=== PATIENT | male | born 1970 | race Caucasian/White ===

== ENCOUNTER 2017-03-18 20:33 | Emergency (ER) | payer OTHER ==
--- NOTE | 2017-03-18 20:59 | EDPHY ---
H & P Time Seen by Provider: 03/18/17 20:50 HPI/ROS: CHIEF COMPLAINT: Laceration left hand HISTORY OF PRESENT ILLNESS: 46-year-old [id number] male with out-of- date tetanus sustained accidental laceration to his right hand thenar eminence when he was using a knife to separate frozen hamburger patties and the knife went into his hand. No paresthesia. Occurred shortly prior to arrival PHYSICAL EXAM (Prior to examination, patient consented to physical exam, hands were washed and my usual and customary physical exam procedures followed) 1) GENERAL: Well-developed, well-nourished, alert and oriented. Appears to be in no acute distress. 2) HEAD: Normocephalic 3) HEENT: sclera anicteric 4) LUNGS: Breathing comfortably. 5) SKIN: 2.5 cm laceration left thenar eminence 6) MUSCULOSKELETAL: no flexor or extensor deficits in all digits. 7) NEUROLOGIC: Full sensation all digits distally Smoking Status: Never smoked Constitutional: Initial Vital Signs Temperature (C) 37 C 03/18/17 20:38 Heart Rate 69 03/18/17 20:38 Respiratory Rate 16 03/18/17 20:38 Blood Pressure 144/91 H 03/18/17 20:38 O2 Sat (%) 95 03/18/17 20:38 O2 Delivery Mode Room Air Allergies/Adverse Reactions: No Known Allergies Allergy (Unverified 03/18/17 20:42) Home Medications: Medication Instructions Recorded Cephalexin [Keflex] 500 mg PO TID 5 Days 03/18/17 MDM/Departure - [facility] Imaging Results: Xray of the left hand interpreted by myself: no definitive acute osseous abnormality, no radiopaque foreign body Procedures: Procedure: Laceration repair. I explained the indications, risks and benefits for both laceration repair and anesthetic administration. Verbal consent was obtained from the patient and parent. The laceration on the left thenar eminence was anesthetized using 0.5 % bupivicaine without epinephrine . After anesthetic administered the patient was observed for a period of time and had no apparent adverse effects. The wound was cleaned, prepped, draped in normal sterile fashion and explored to its base. No foreign body seen, no foreign bodies palpated. There were no deep structures involved. No tendon injury was identified. The wound was repaired with 5 simple interrupted 5 O Ethilon suture . The wound repair was simple The procedure was performed by myself. Patient has been informed that scarring will occur, although efforts have been made to minimize this. - Depart Disposition: Home, Routine, Self-Care Clinical Impression: Laceration of left hand Qualifiers: Encounter type: initial encounter Foreign body presence: without foreign body Qualified Code(s): S61.412A - Laceration without foreign body of left hand, initial encounter Condition: Good Instructions: Laceration (ED) Additional Instructions: Return to the ER if you develop redness, swelling, discharge, warmth to the wound, red streaks going up your arm , or any other symptoms that concern you. Prescriptions: Cephalexin [Keflex] 500 mg PO TID 5 Days Referrals: Tyson Hankins MD [Medical Doctor] - 2-3 days, call for appt. Return, to the ER in 10 days for suture removal [Other] - 03/28/17
[2017-03-18 21:35] VITALS: BP 138/78; PULSE 80; RESP 14; TEMP 98.4; O2SAT 94
== END 2017-03-18 21:34 | disposition home or self-care (01) ==
PROC: 0HQGXZZ Repair Left Hand Skin, External Approach (ICD-10-PCS; principal; 2017-03-18)
DX: S61.412A Laceration without foreign body of left hand, initial encounter (principal); W26.0XXA Contact with knife, initial encounter; Y93.89 Activity, other specified